=== PATIENT | female | born 1985 | race Caucasian/White ===

== ENCOUNTER 2019-01-27 07:27 | Inpatient (IN) | payer MEDICAID ==
[~2019-01-27] VITALS: Ht 152.4 cm; Wt 70.9 kg
[~2019-01-27 07:27] MED LIST: ACET500C5 PO; CALC1TAB98 PO; FERR-31 PO; FOLI-49 PO; PREN-29 PO
[2019-01-27 07:38] VITALS: Ht 152.4 cm; Wt 70.9 kg
[2019-01-27 07:39] VITALS: BP 108/75; PULSE 67
[2019-01-27] MEDS ORDERED: LACTATED RINGER'S 1,000 ML IV SCH (07:50)
[2019-01-27] MEDS ORDERED: OXYTOCIN 30 UNITS/LR 500 ML IV SCH ×3 (08:00)
[2019-01-27] MEDS ORDERED: OXYTOCIN 30 UNITS/LR 500 ML IV PRN ×2 (08:00→18:30)
[2019-01-27] MEDS ORDERED: CARBOPROST 250 MCG INJ IM PRN ×2 (08:00→18:30)
[2019-01-27] MEDS ORDERED: MISOPROSTOL 200 MCG TAB PR PRN ×2 (08:00→18:30)
[2019-01-27] MEDS ORDERED: LIDOCAINE 1% (MPF) 30 ML INJ INJ PRN (08:00)
[2019-01-27] MEDS ORDERED: METHYLERGONOVINE 0.2 MG INJ IM PRN ×2 (08:00→18:30)
--- NOTE | 2019-01-27 15:33 | HP ---
Date/Time of Note Date/Time of Note DATE: 01/27/19 TIME: 15:30 OB - History Hx of Present Free Text/Dictation 33-year-old with single intrauterine at 39 weeks and 3days with a DELORES of 01/31/2019 complaining of uterine contractions. She states good movement. She denies nausea, vomiting, shortness of breath, chest pain, headache, visual changes, vaginal bleeding or LOF. Chief Complaint: Uterine contractions Estimated Due Date: Jan 31, 2019 : 3 Para: 2 Spontaneous : 0 Therapeutic : 0 Care: Good Care Ultrasounds: Normal mid trimester US Obstetrical Complications: None Past Family/Social History * Past Medical, Surgical, Family and Obstetric Histories reviewed from chart. Blood Type: A+ Rubella: immune RPR/VDRL: Negative GBS Status: Negative HBsAG: Negative OB Admission Exam Vital Signs Vital Signs Vital Signs Date Temp Pulse Resp B/P (MAP) Pulse Ox O2 O2 Flow FiO2 Time Delivery Rate 01/27/19 97.9 67 108/75 07:39 (86) Physical Exam HEENT: WNL Heart: Rhythm Normal Lungs: Clear Abdomen: WNL Extremities: Normal Reflexes: Normal Cervical Dilatation: 4cm Effacement: 75% Station: Ballotable Membranes: Intact Heart Rate: 130's Accelerations: Accelerations Present Decelerations: No Decelerations Varibility: Moderate Contractions on Admission: < 5 Minutes Apart Intensity: Moderate Last 72 hours Lab Results CBC & BMP 01/27/19 08:18 OB Assessment/Plan Other plan: 33 years old at 39 weeks and 3 days admitted in active labor. - FHR: No sign of metabolic acidosis- Category I - Continuous EFM, toco - CBC, blood type and screen - Analgesia options with R/B/A discussed in detail with patient - Epidural per patient request - Please see the orders - OA+/Rubella: Immune - GBS: Negative Admission, procedures, expectations, risks and possible complications have been discussed in detail with the patient. Risk of vaginal delivery including but not limited to bleeding, infection, cervical laceration, placental retention, injury to fetus, blood transfusion, blood transfusion related infection, risk of anesthesia, adhesion, cervical laceration, episiotomy/laceration, possible delivery with risk of bleeding, infection, injury to other organs (bowel, bladder, ureter, vessels, nerves), injury to fetus, blood transfusion, blood transfusion related infection, risk of anesthesia, scar and hernia formation, needs for future , removal of uterus or any other indicated surgery discussed with the patient. She expressed understanding and repeats the risks. All of her questions were answered. She signed the informed consent. PHYSICIAN'S VERIFICATION OF INFORMED CONSENT The patient was counseled regarding the procedure, its indications, risks, potential complications and alternatives and any questions were answered. Consent was obtained. PLANNED PROCEDURE/TREATMENT: Vaginal delivery, episiotomy, repair of laceration possible delivery Addendum: Spontaneous rupture of membrane at 14:35, clear. TERRELL SUN Jan 27, 2019 15:33
--- NOTE | 2019-01-27 18:24 | LDN ---
Date/Time of Note Date/Time of Note DATE: 01/27/19 TIME: 17:55 Delivery Summary 33-year-old with single intrauterine at 39 weeks and 3 days with shoulder dystocia which Mc Zeke maneuver and suprapubic pressure done for delivery of viable male in cephalic presentation over second-degree vaginal and perineal laceration. Cord clamped and cut after stopping pulsation. Baby given to the nurse. Placenta delivered spontaneously and intact with three-vessel cord. There was severe bleeding due to uterine atonia after delivery of placenta. Straight catheter used to drain the bladder, 300 mL urine drained. Pitocin, Methergine and 400 mcg Cytotec p.o. and 600 rectally given. Laceration repaired with 2-0 Vicryl with local anesthesia. Patient tolerated procedure well. Time of delivery 16:51 Weight 8 pounds 9 at 1 minutes and 9 at 5 minutes EBL 450 Weeks of Gestation 39 weeks and 3 days Placenta Delivered: Spontaneously Meconium: none Episiotomy: No Estimated blood loss: 450 Sponge & Needle done & correct: Yes All needle counts correct: Yes Any foreign bodies felt in the: No Infant Delivery Information Sex Infant Sex: male Apgars 1 Minute: 9 5 Minute: 9 10 Minute: 10 Suctioning Nose & mouth suctioned at sandra: No Umbilical Cord Umbilical cord with: 3 Vessels Cord presentations: no nuchal cord Cord Blood was obtained: Yes Mother & Baby Disposition Disposition Mom & Baby to Maternity; Good: Yes TERRELL SUN Jan 27, 2019 18:23
[2019-01-27] MEDS ORDERED: LANOLIN HPA 1 PKT TOP PRN (18:30)
[2019-01-27] MEDS ORDERED: SENNA/DOCUSATE NA (8.6MG/50MG) TAB PO PRN (18:30)
[2019-01-27] MEDS ORDERED: DIBUCAINE 1% 30 GM OINT TOP PRN (18:30)
[2019-01-27] MEDS ORDERED: MAGNESIUM HYDROXIDE 30ML CUP PO PRN (18:30)
[2019-01-27] MEDS ORDERED: ZOLPIDEM 5 MG TAB PO PRN (18:30)
[2019-01-27] MEDS ORDERED: ACETAMINOPHEN 325 MG TAB PO PRN (18:30)
[2019-01-27] MEDS ORDERED: OXYCODONE/ASPIRIN (4.88/325) TAB PO PRN (18:30)
[2019-01-27] MEDS ORDERED: ONDANSETRON 4 MG INJ IV PRN (18:30)
[2019-01-27] MEDS ORDERED: DIPHENHYDRAMINE 50 MG INJ IV PRN (18:30)
[2019-01-27] MEDS ORDERED: IBUPROFEN 600 MG TAB PO ONE (20:00)
[2019-01-27 20:12] VITALS: BP 108/62; PULSE 75; RESP 18
[2019-01-27] MEDS: WITCH HAZEL/GLYCERIN PAD PR PRN (23:43)
[2019-01-27] MEDS: BENZOCAINE 20% 56 ML SPRAY TOP PRN (23:43)
[2019-01-27] MEDS: LACTATED RINGER'S 1,000 ML IV* SCH (23:43)
[2019-01-28] MEDS: DEXTROSE 5%-LR 1,000 ML IV SCH ×4 (00:54→11:27)
[2019-01-28] MEDS: LACTATED RINGER'S 1,000 ML IV* SCH ×3 (02:24→11:27)
[2019-01-28 04:20] VITALS: BP 96/61; PULSE 83; RESP 18
[2019-01-28] MEDS: IBUPROFEN 600 MG TAB PO SCH ×5 (05:46→23:50)
[2019-01-28 08:30] VITALS: BP 90/51; PULSE 80; RESP 18
--- NOTE | 2019-01-28 11:41 | PN ---
Date/Time of Note Date/Time of Note DATE: 01/28/19 TIME: 11:39 OB Subjective Subjective Subjective Spitting. Denies any complaint. Ambulating. Decreased vaginal bleeding. D enies any dizziness, chest pain shortness of breath lightheadedness. Urinated. OB Objective Objective Objective GAt: Alert and oriented x4 does not appear to be in any acute distress comfortable in bed. Bedside. Breast-feeding Abdomen: Soft, fundus firm and palpable about the level of umbilicus and nontender breast:no evidence of mastitis, fissure or engorgement Extremities No calf tenderness, no click no edema no cord palpable Laboratory Tests Test 01/27/19 08:18 01/28/19 06:08 01/28/19 08:41 White Blood Count 4.4 10^3/ul 8.3 10^3/ul Red Blood Count 4.43 10^6/ul 3.03 10^6/ul Hemoglobin 12.8 g/dl 8.8 g/dl Hematocrit 38.4 % 26.5 % Mean Corpuscular Volume 86.7 fl 87.5 fl Mean Corpuscular 28.9 pg 29.0 pg Hemoglobin Mean Corpuscular 33.3 g/dl 33.2 g/dl Hemoglobin Concent Red Cell Distribution 16.0 % 16.2 % Width Platelet Count 153 10^3/UL 135 10^3/UL Mean Platelet Volume 12.3 fl 12.2 fl Immature Granulocytes % 0.200 % 0.500 % Neutrophils % 65.0 % 76.9 % Lymphocytes % 26.7 % 16.7 % Monocytes % 6.2 % 5.3 % Eosinophils % 1.4 % 0.4 % Basophils % 0.5 % 0.2 % Nucleated Red Blood Cells 0.0 /100WBC 0.0 /100WBC % Immature Granulocytes # 0.010 10^3/ul 0.040 10^3/ul Neutrophils # 2.8 10^3/ul 6.4 10^3/ul Lymphocytes # 1.2 10^3/ul 1.4 10^3/ul Monocytes # 0.3 10^3/ul 0.4 10^3/ul Eosinophils # 0.1 10^3/ul 0.0 10^3/ul Basophils # 0.0 10^3/ul 0.0 10^3/ul Nucleated Red Blood Cells 0.0 10^3/ul 0.0 10^3/ul # Prothrombin Time 12.0 Sec Prothrombin Time Ratio 0.9 INR International 0.88 Normalized Ratio Activated 27.7 Sec Partial Thromboplast Time Rapid Plasma Reagin NONREACTIVE Hepatitis B Surface NEGATIVE Antigen Lab Scanned Report [facility] [id number] OB Assessment/Plan Other Assessment: day #1 Doing well Anemia, , asymptomatic Continue routine care Anticipate DC home tomorrow CANELO HARRISON MD Jan 28, 2019 11:41
[2019-01-28 11:45] VITALS: BP 101/56; PULSE 94; RESP 17
[2019-01-28 16:23] VITALS: BP 92/51; PULSE 82; RESP 18
[2019-01-28 19:25] VITALS: BP 103/56; PULSE 87; RESP 18
[2019-01-29 04:00] VITALS: BP 91/58; PULSE 76; RESP 18
[2019-01-29] MEDS: IBUPROFEN 600 MG TAB PO SCH ×2 (05:54→11:37)
[2019-01-29 07:50] VITALS: BP 82/53; PULSE 79; RESP 17
[2019-01-29] MEDS ORDERED: MEASLES,MUMPS,RUBELLA VACCINE INJ SC* ONE (09:00)
[2019-01-29] MEDS ORDERED: DIPHTH/TET/ACEL PERTUSS (ADULT) 0.5 ML VIAL IM* ONE (09:00)
--- NOTE | 2019-01-29 10:31 | PD.PPDC ---
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
--- NOTE | 2019-01-29 10:58 | DS ---
Date/Time of Note Date/Time of Note DATE: 01/29/19 TIME: 10:56 Obstetrical Discharge Record Final Diagnosis Final Diagnosis: Term delivered Vaginal Delivery Obstetrical Delivery: Spontaneous, Laceration, Repaired Complications Augmentation: Yes Induction: No Rupture of Membranes: No Condition on Discharge Physical Assessment Last Vitals: VSS afebrile Voiding: Yes Bowel Movement: No Breast: Soft, non-tender Fundus: Firm Abdomen and Incision: n/a Episiotomy: n/a Calf Tenderness: No Patient Condition: Stable DOROTEO ART MD Jan 29, 2019 10:58
[2019-01-29] MEDS: WITCH HAZEL/GLYCERIN PAD PR PRN (11:37)
[2019-01-29] MEDS: BENZOCAINE 20% 56 ML SPRAY TOP PRN (11:37)
--- NOTE | 2019-01-30 12:53 | DELSUM ---
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 Babies in Womb: 1 Attempted: No Labor Anesthesia: None LABOR INFORMATION Reason for Induction: Not Applicable Complete Dilatation: 01/27/2019 16:40 Oxytocin: Augmentation Group B Beta Strep: Negative Antibiotics # of Doses: 0 Steroids Given: None Reason Steroids Not Administered: Not Applicable MEMBRANES Membranes Rupture Method: Spontaneous Rupture of Membranes: 01/27/2019 14:36 Length of Rupture (hr): 2.25 Amniotic Fluid Color: Clear Amniotic Fluid Amount: Small Amniotic Fluid Odor: None STAGES OF LABOR Stage 2 hr: 0 Stage 2 min: 11 Stage 3 hr: 0 Stage 3 min: 29 VAGINAL DELIVERY Episiotomy: None Laceration Extension: Second Degree Laceration Type: Perineal Laceration Repair: Yes Initial Vag Sponge Count: 10 Final Vag Sponge Count: 10 Initial Vag Sharps Count: 1+1 Final Vag Sharps Count: 2 Sponge Count Correct: Yes; Vaginal Sweep Performed Sharps Count Correct: Yes BABY A INFORMATION Delivery Date/Time: 01/27/2019 16:51 Method of Delivery: Vaginal Born in Route : No : N/A Forceps: N/A Vacuum Extraction: N/A Shoulder Dystocia : Yes SHOULDER DYSTOCIA BABY A Delivery of Head: 01/27/2019 16:51 Infant Delivery Date/Time: 01/27/2019 16:51 Time Head to Delivery : 0.0 1st Intervention to Resolve: McRobert's Maneuver 2nd Intervention to Resolve: Suprapubic Pressure Verify NO Fundal Pressure: No Fundal Pressure Applie Arm Under Symphisis at Del: Right PRESENTATION/POSITION BABY A Presentation: Cephalic Cephalic Presentation: Vertex Breech Presentation: N/A PLACENTA INFORMATION BABY A Placenta Delivery Time : 01/27/2019 17:20 Placenta Method of Delivery: Expressed Placenta Status: Delivered SCORES BABY A Heart Rate 1 min: >100 bpm Resp Effort 1 min: Good Cry Reflex Irritability 1 min: Cough/Sneeze/Pulls Away Muscle Tone 1 min: Active Motion Color 1 min: Body [place], Extremit Blue Resuscitation Effort 1 min: Tactile Stimulation SCORE 1 MIN: 9 Heart Rate 5 min: >100 bpm Resp Effort 5 min: Good Cry Reflex Irritability 5 min: Cough/Sneeze/Pulls Away Muscle Tone 5 min: Active Motion Color 5 min: Body [place], Extremit Blue Resuscitation Effort 5 min: Tactile Stimulation SCORE 5 MIN: 9 INFANT INFORMATION BABY A Gestational Age at Delivery: 39.3 Gestational Status: Full Term- 39- 40.6 Weeks Infant Outcome : Liveborn Infant Condition : Stable Infant Sex: Male IDENTIFICATION/MEDS BABY A ID Band Number: [id number] ID Band Location: Right Leg; Left Arm Sensor Applied: Yes Sensor Number: [id number] Sensor Location : Cord Clamp Vitamin K Given : Not Given Erythromycin Given: Not Given WEIGHT/LENGTH BABY A Birthweight (gm): 3640 Infant Weight (lb): 8 Weight (oz): 0 Length (in): 19.75 Length (cm): 50.17 CORD INFORMATION BABY A No. Cord Vessels: 3 Nuchal Cord : N/A Cord Blood Taken: Yes Infant Suction: Mouth; Nose ASSESSMENT BABY A Infant Complications: Shoulder Dystocia Physical Findings at Delivery: Within Normal Limits Infant Respirations: Appears Normal Battery Builder/ALS Called : No Infant Care By: ANTWON Transferred To: Remains with Mother
== END 2019-01-29 12:39 | disposition home or self-care (01) | DRG 807 ==
LOC: OBT 07:27 → L-D 07:27 → OBT 07:54 → L-D 07:55 → PP1 20:12
PROVIDERS: ADMIT Obstetrics & Gynecology; ATTEND Obstetrics & Gynecology
PROC: 10E0XZZ Delivery of Products of Conception, External Approach (ICD-10-PCS; principal; 2019-01-27)
PROC: 0KQM0ZZ Repair Perineum Muscle, Open Approach (ICD-10-PCS; 2019-01-27)
DX: O66.0 Obstructed labor due to shoulder dystocia (principal); Z37.0 Single live birth; O70.1 Second degree perineal laceration during delivery; O90.81 Anemia of the puerperium; D64.9 Anemia, unspecified; Z3A.39 39 weeks gestation of pregnancy
CPT/HCPCS: 76815; 85025; 85610; 85730; 86592; 86850; 86900; 86901; 87340; G0463; J2210; J2590; J7120; J7121